=== PATIENT | male | born 1930 | race Caucasian/White ===

== ENCOUNTER 2021-03-28 22:18 | Inpatient (IN) | payer MEDICARE, MEDICAID ==
[~2021-03-28] VITALS: Ht 175.3 cm; Wt 51.7 kg
[2021-03-28] MEDS ORDERED: SODIUM CHLORIDE 0.9% 1000ML BAG (SEPSIS BOLUS) IV ONE (23:00)
[2021-03-28] MEDS ORDERED: PIPERACILLIN/TAZ 3.375G PREMIX 50 ML IV ONE (23:00)
[2021-03-28] MEDS ORDERED: VANCOMYCIN 1 G PREMIX 200 ML IV ONE (23:00)
[2021-03-28 23:18] LABS: CLARITY URINE CLOUDY (CLEAR); COLOR URINE DARK YELLOW (YELLOW); KETONES URINE NEGATIVE (NEGATIVE); LEUKOCYTE ESTERASE URINE 1+ (NEGATIVE); NITRITE URINE NEGATIVE (NEGATIVE); OCCULT BLOOD URINE NEGATIVE (NEGATIVE); PROTEIN URINE 1+ (NEGATIVE); SPECIFIC GRAVITY URINE 1.018 (1.005-1.030)
[2021-03-28 23:26] LABS: BASOPHILS % 0.5 % (0.0-2.0); EOSINOPHILS % 1.1 % (0.0-5.0); HEMATOCRIT. 28.7 % (42.0-52.0); HEMOGLOBIN. 9.1 g/dL (14.0-18.0); LYMPHOCYTES % 13.5 % (20.0-50.0); MEAN CORPUSCULAR HEMOGLOBIN 34.3 pg (28.0-32.0); MEAN CORPUSCULAR VOLUME 107.7 fL (80.0-94.0); MEAN PLATELET VOLUME 11.4 fl (7.4-10.4); MONOCYTES % 13.9 % (2.0-8.0); PLATELET 221 x1000/uL (130-400); RED BLOOD CELL COUNT 2.67 mill/uL (4.7-6.1)
[2021-03-28 23:32] LABS: CHLORIDE 109 mEq/L (98-107)
[2021-03-28 23:35] LABS: INR 1.2; PARTIAL THROMBOPLASTIN TIME 23.6 sec (23.4-31.0); PROTHROMBIN TIME 12.4 sec (9.6-11.0)
[2021-03-29] VITALS (59 sets, daily range): BP systolic 88–158; BP diastolic 50–87
[2021-03-29] MEDS ORDERED: PROPOFOL 10MG/ML 100ML 100 ML IV STA ×2 (00:22→07:30)
[2021-03-29] MEDS ORDERED: ETOMIDATE 2MG/ML 10ML VIAL IV ONE (00:30)
[2021-03-29] MEDS ORDERED: SUCCINYLCHOLINE CHLORIDE 200MG/10ML IV ONE (00:30)
[2021-03-29 00:38] LABS: BG BASE EXCESS 9.3 mmol/L (-2.0-2.0); BG CARBOXYHEMOGLOBIN 0.3 % (0.5-1.5); BG DEOXYHEMOGLOBIN 2.3 % (0.0-5.0); BG FRACTION INSPIRED OXYGEN 34; BG HCO3 ACT 39.8 mmol/L (22.0-26.0); BG METHEMOGLOBIN 0.2 % (0.0-1.5); BG OXYGEN SATURATION 97.7 % (92.0-98.5); BG OXYHEMOGLOBIN 97.2 % (94.0-97.0); BG PCO2 104.4 mmHg (35.0-45.0); BG PH 7.199 (7.350-7.450); BG PO2 137.6 mmHg (75.0-100.0); BG SAMPLE SITE RIGHT RADIAL; BG TOTAL HEMOGLOBIN 9.4 g/dL (12.0-18.0); BG VENT MODE NASAL CANNULA
[2021-03-29] MEDS ORDERED: ALBUTEROL (0.083%) 2.5MG/3ML NEB HHN ONE (01:45)
[2021-03-29] MEDS ORDERED: SODIUM BICARBONATE 8.4% 1 MEQ/ML 50ML SYR IV ONE (01:45)
[2021-03-29] MEDS ORDERED: SODIUM POLYSTYRENE SULFONATE 15 G/60 ML BOT GT ONE (01:45)
[2021-03-29] MEDS ORDERED: ALBUTEROL (0.5%) 2.5MG/0.5ML NEB HHN ONE (01:58)
[2021-03-29 02:43] LABS: BG BASE EXCESS 9.1 mmol/L (-2.0-2.0); BG CARBOXYHEMOGLOBIN 0.3 % (0.5-1.5); BG DEOXYHEMOGLOBIN 3.4 % (0.0-5.0); BG FRACTION INSPIRED OXYGEN 50; BG HCO3 ACT 33.8 mmol/L (22.0-26.0); BG OXYGEN SATURATION 96.6 % (92.0-98.5); BG OXYHEMOGLOBIN 96.3 % (94.0-97.0); BG PCO2 47.9 mmHg (35.0-45.0); BG PH 7.467 (7.350-7.450); BG PO2 88.3 mmHg (75.0-100.0); BG SAMPLE SITE RIGHT BRACHIAL; BG TOTAL HEMOGLOBIN 9.5 g/dL (12.0-18.0); BG VENT MODE VENT - AC
[2021-03-29] MEDS ORDERED: NOREPINEPHRINE 8MG/250ML PMX 250 ML IV ONE (02:45)
[2021-03-29] MEDS ORDERED: LORAZEPAM 2MG/ML CPJ IV ONE (03:30)
[2021-03-29] MEDS ORDERED: VANCOMYCIN 1 G PREMIX 200 ML IV SCH (05:15)
[2021-03-29] MEDS ORDERED: ASPIRIN 81MG TABLET PO ONE (05:30)
[2021-03-29] MEDS ORDERED: ONDANSETRON HCL 4MG/2ML INJ IV PRN (08:45)
[2021-03-29] MEDS ORDERED: PIPERACILLIN/TAZ 3.375G PREMIX 50 ML IV ONE (09:00)
[2021-03-29 09:05] LABS: BG BASE EXCESS 13.4 mmol/L (-2.0-2.0); BG CARBOXYHEMOGLOBIN 0.3 % (0.5-1.5); BG DEOXYHEMOGLOBIN 3.6 % (0.0-5.0); BG FRACTION INSPIRED OXYGEN 50; BG HCO3 ACT 35.9 mmol/L (22.0-26.0); BG METHEMOGLOBIN 0.4 % (0.0-1.5); BG OXYGEN SATURATION 96.4 % (92.0-98.5); BG OXYHEMOGLOBIN 95.7 % (94.0-97.0); BG PCO2 37.1 mmHg (35.0-45.0); BG PH 7.604 (7.350-7.450); BG PO2 74.9 mmHg (75.0-100.0); BG SAMPLE SITE RIGHT RADIAL; BG TOTAL HEMOGLOBIN 9.8 g/dL (12.0-18.0)
[2021-03-29] MEDS: DEXTROSE 5% WATER 1,000 ML IV SCH ×2 (09:20→21:03)
[2021-03-29] MEDS ORDERED: PROT40 MT (10:33)
[2021-03-29] MEDS ORDERED: MULT-1146 MT (10:33)
[2021-03-29] MEDS ORDERED: LISI-186 MT (10:33)
[2021-03-29] MEDS ORDERED: FERR15DR7 MT (10:33)
[2021-03-29] MEDS ORDERED: HJ10 IJ (10:33)
[2021-03-29] MEDS ORDERED: LACT10SO7 MT (10:33)
[2021-03-29] MEDS ORDERED: ATOR-2 PO (10:33)
[2021-03-29] MEDS ORDERED: ASPI-1497 MT (10:33)
[2021-03-29] MEDS ORDERED: ALBU4TAB6 MT (10:33)
[2021-03-29] MEDS ORDERED: LORA2ORA5 PO (10:33)
[2021-03-29] MEDS: PANTOPRAZOLE SODIUM 40 MG/VIAL IV SCH (10:43)
[2021-03-29] MEDS: IPRATROPIUM/ALBUTEROL 0.5-3(2.5)MG/3ML NEB HHN SCH ×2 (13:56→20:08)
[2021-03-29] MEDS: PIPERACILLIN/TAZOBACTAM 3.375 G in DEXTROSE 5% WATER 50 ML IV SCH ×2 (14:29→21:03)
[2021-03-29] MEDS: BACITRACIN 15GM TUBE TOP SCH (14:30)
[2021-03-29] MEDS: PROPOFOL 10MG/ML 100ML 100 ML IV PRN (14:32)
[2021-03-29] MEDS ORDERED: PIPERACILLIN/TAZOBACTAM 3.375 G in DEXTROSE 5% WATER 50 ML IV SCH (15:00)
[2021-03-29] MEDS: NOREPINEPHRINE 8 MG in DEXT 5% WATER 242 ML IV PRN (22:00)
[2021-03-30] VITALS (93 sets, daily range): BP systolic 94–153; BP diastolic 47–135
[2021-03-30] MEDS: IPRATROPIUM/ALBUTEROL 0.5-3(2.5)MG/3ML NEB HHN SCH ×4 (01:49→20:36)
[2021-03-30] MEDS: PIPERACILLIN/TAZOBACTAM 3.375 G in DEXTROSE 5% WATER 50 ML IV SCH ×4 (03:16→21:14)
[2021-03-30 05:49] LABS: BASOPHILS % 0.4 % (0.0-2.0); EOSINOPHILS % 1.1 % (0.0-5.0); HEMATOCRIT. 27.6 % (42.0-52.0); HEMOGLOBIN. 8.9 g/dL (14.0-18.0); LYMPHOCYTES % 11.8 % (20.0-50.0); MEAN CORPUSCULAR HEMOGLOBIN 33.6 pg (28.0-32.0); MEAN CORPUSCULAR VOLUME 104.4 fL (80.0-94.0); MEAN PLATELET VOLUME 11.4 fl (7.4-10.4); MONOCYTES % 6.4 % (2.0-8.0); NEUTROPHILS % 80.3 % (40.0-76.0); PLATELET 186 x1000/uL (130-400); RED BLOOD CELL COUNT 2.64 mill/uL (4.7-6.1); RED CELL DISTRIBUTION WIDTH 19.9 % (11.6-14.6)
[2021-03-30 05:50] LABS: CHLORIDE 109 mEq/L (98-107)
[2021-03-30] MEDS: PROPOFOL 10MG/ML 100ML 100 ML IV PRN (07:00)
[2021-03-30] MEDS ORDERED: POTASSIUM CHLORIDE 20MEQ TABLET SR PO NR (08:15)
[2021-03-30] MEDS: PANTOPRAZOLE SODIUM 40 MG/VIAL IV SCH (08:21)
[2021-03-30] MEDS: ASPIRIN 81MG TABLET PO SCH (08:21)
[2021-03-30] MEDS: BACITRACIN 15GM TUBE TOP SCH (08:22)
[2021-03-30 09:17] LABS: BG BASE EXCESS 9.3 mmol/L (-2.0-2.0); BG CARBOXYHEMOGLOBIN 0.3 % (0.5-1.5); BG DEOXYHEMOGLOBIN 2.4 % (0.0-5.0); BG FRACTION INSPIRED OXYGEN 30; BG HCO3 ACT 32.2 mmol/L (22.0-26.0); BG METHEMOGLOBIN 0.4 % (0.0-1.5); BG OXYGEN SATURATION 97.6 % (92.0-98.5); BG OXYHEMOGLOBIN 96.9 % (94.0-97.0); BG PCO2 37.1 mmHg (35.0-45.0); BG PH 7.556 (7.350-7.450); BG PO2 104.3 mmHg (75.0-100.0); BG SAMPLE SITE RIGHT RADIAL; BG TOTAL HEMOGLOBIN 9.7 g/dL (12.0-18.0); BG VENT MODE VENT - AC
[2021-03-30] MEDS ORDERED: POTASSIUM CHLORIDE INJ 40 MEQ in DEXT 5% WATER 250 ML IV NR (09:30)
[2021-03-30] MEDS ORDERED: FUROSEMIDE 20MG/2ML VIAL IVP NR (09:30)
[2021-03-30] MEDS: MIDODRINE HCL 5MG TABLET PO SCH ×3 (09:45→16:25)
[2021-03-30] MEDS: DEXTROSE 5% WATER 1,000 ML IV SCH ×2 (11:25→20:28)
[2021-03-30] MEDS: NOREPINEPHRINE 8 MG in DEXT 5% WATER 242 ML IV PRN (19:44)
[2021-03-31] VITALS (94 sets, daily range): BP systolic 74–160; BP diastolic 19–107
[2021-03-31] MEDS: IPRATROPIUM/ALBUTEROL 0.5-3(2.5)MG/3ML NEB HHN SCH ×4 (01:33→20:17)
[2021-03-31] MEDS ORDERED: NOREPINEPHRINE 8 MG in SODIUM CHLORIDE 0.9% 242 ML IV PRN (03:00)
[2021-03-31] MEDS: PIPERACILLIN/TAZOBACTAM 3.375 G in DEXTROSE 5% WATER 50 ML IV SCH ×4 (03:06→20:05)
[2021-03-31 05:56] LABS: CHLORIDE 101 mEq/L (98-107)
[2021-03-31 05:57] LABS: BASOPHILS % 0.3 % (0.0-2.0); EOSINOPHILS % 1.3 % (0.0-5.0); HEMATOCRIT. 29.1 % (42.0-52.0); HEMOGLOBIN. 9.5 g/dL (14.0-18.0); LYMPHOCYTES % 7.3 % (20.0-50.0); MEAN CORPUSCULAR HEMOGLOBIN 33.9 pg (28.0-32.0); MEAN CORPUSCULAR VOLUME 103.4 fL (80.0-94.0); MEAN PLATELET VOLUME 11.5 fl (7.4-10.4); MONOCYTES % 6.7 % (2.0-8.0); NEUTROPHILS % 84.4 % (40.0-76.0); PLATELET 198 x1000/uL (130-400); RED BLOOD CELL COUNT 2.81 mill/uL (4.7-6.1); RED CELL DISTRIBUTION WIDTH 20.2 % (11.6-14.6)
[2021-03-31] MEDS: DEXTROSE 5% WATER 1,000 ML IV SCH (06:18)
[2021-03-31 07:16] LABS: BG BASE EXCESS 7.7 mmol/L (-2.0-2.0); BG CARBOXYHEMOGLOBIN 0.1 % (0.5-1.5); BG DEOXYHEMOGLOBIN 2.9 % (0.0-5.0); BG HCO3 ACT 30.8 mmol/L (22.0-26.0); BG METHEMOGLOBIN 0.4 % (0.0-1.5); BG OXYGEN SATURATION 97.1 % (92.0-98.5); BG OXYHEMOGLOBIN 96.6 % (94.0-97.0); BG PCO2 37.5 mmHg (35.0-45.0); BG PH 7.533 (7.350-7.450); BG PO2 93.9 mmHg (75.0-100.0); BG SAMPLE SITE RIGHT RADIAL; BG TOTAL HEMOGLOBIN 10.1 g/dL (12.0-18.0); BG VENT MODE VENT - AC
[2021-03-31] MEDS: SODIUM CHLORIDE 0.45% 1,000 ML IV SCH (08:59)
[2021-03-31] MEDS: PANTOPRAZOLE SODIUM 40 MG/VIAL IV SCH (08:59)
[2021-03-31] MEDS: ASPIRIN 81MG TABLET PO SCH (09:00)
[2021-03-31] MEDS ORDERED: POTASSIUM CHLORIDE 20MEQ TABLET SR PO SCH (09:00)
[2021-03-31] MEDS: MIDODRINE HCL 5MG TABLET PO SCH ×3 (09:00→17:38)
[2021-03-31] MEDS: BACITRACIN 15GM TUBE TOP SCH (09:03)
[2021-03-31] MEDS ORDERED: SKIN ADHESIVE 0.7 GM EA TOP ONE (10:24)
[2021-03-31] MEDS ORDERED: LIDOCAINE HCL 1% 20ML VIAL (Pyxis) INJ INFIL NR (11:00)
[2021-03-31] MEDS ORDERED: FUROSEMIDE 40MG/4ML VIAL IVP NR (18:00)
[2021-03-31] MEDS: NOREPINEPHRINE 8 MG in DEXT 5% WATER 242 ML IV PRN (18:03)
[2021-03-31] MEDS: SPIRONOLACTONE 25MG TABLET PO SCH (18:45)
[2021-04-01] VITALS (87 sets, daily range): BP systolic 82–157; BP diastolic 17–108
[2021-04-01] MEDS: IPRATROPIUM/ALBUTEROL 0.5-3(2.5)MG/3ML NEB HHN SCH ×4 (02:20→20:30)
[2021-04-01] MEDS: PIPERACILLIN/TAZOBACTAM 3.375 G in DEXTROSE 5% WATER 50 ML IV SCH ×4 (02:57→20:06)
[2021-04-01] MEDS: SODIUM CHLORIDE 0.45% 1,000 ML IV SCH (02:58)
[2021-04-01 04:31] LABS: HEMATOCRIT. 24.6 % (42.0-52.0); HEMOGLOBIN. 8.2 g/dL (14.0-18.0); MEAN CORPUSCULAR HEMOGLOBIN 33.8 pg (28.0-32.0); MEAN CORPUSCULAR VOLUME 102.3 fL (80.0-94.0); MEAN PLATELET VOLUME 11.3 fl (7.4-10.4); PLATELET 149 x1000/uL (130-400); RED BLOOD CELL COUNT 2.41 mill/uL (4.7-6.1); RED CELL DISTRIBUTION WIDTH 20.4 % (11.6-14.6)
[2021-04-01 04:39] LABS: CHLORIDE 100 mEq/L (98-107)
[2021-04-01] MEDS: PANTOPRAZOLE SODIUM 40 MG/VIAL IV SCH (09:08)
[2021-04-01] MEDS: FUROSEMIDE 20MG/2ML VIAL IVP SCH ×3 (09:09→17:10)
[2021-04-01] MEDS: MIDODRINE HCL 5MG TABLET PO SCH ×3 (09:09→17:06)
[2021-04-01] MEDS: BACITRACIN 15GM TUBE TOP SCH (09:10)
[2021-04-01] MEDS: SPIRONOLACTONE 25MG TABLET PO SCH (09:10)
[2021-04-01] MEDS: MORPHINE SULFATE 2 MG/ML CPJ (NOT FOR IM USE) IV PRN ×2 (09:13→17:12)
[2021-04-01 09:39] LABS: BG BASE EXCESS 7.7 mmol/L (-2.0-2.0); BG CARBOXYHEMOGLOBIN 0.4 % (0.5-1.5); BG DEOXYHEMOGLOBIN 2.4 % (0.0-5.0); BG FRACTION INSPIRED OXYGEN 35; BG HCO3 ACT 30.7 mmol/L (22.0-26.0); BG METHEMOGLOBIN 0.4 % (0.0-1.5); BG OXYGEN SATURATION 97.6 % (92.0-98.5); BG OXYHEMOGLOBIN 96.8 % (94.0-97.0); BG PCO2 36.4 mmHg (35.0-45.0); BG PH 7.544 (7.350-7.450); BG PO2 100.5 mmHg (75.0-100.0); BG SAMPLE SITE RIGHT RADIAL; BG VENT MODE VENT - AC
[2021-04-01] MEDS ORDERED: POTASSIUM CHLORIDE 20MEQ TABLET SR PO NR (09:45)
[2021-04-01] MEDS ORDERED: POTASSIUM CHLORIDE 20MEQ/PACKET PO NR (10:30)
[2021-04-01] MEDS ORDERED: DOPAMINE 400MG/250ML PREMIX 250 ML IV PRN (10:30)
[2021-04-01 10:40] LABS: NUCLEATED RED BLOOD CELLS 1 /100 WBC; PLATELET ESTIMATE NORMAL
[2021-04-01] MEDS ORDERED: POTASSIUM CHLORIDE 20MEQ/PACKET GT NR (12:15)
[2021-04-01] MEDS: DOPAMINE 400MG/250ML PREMIX 250 ML IV PRN (21:38)
[2021-04-02] VITALS (91 sets, daily range): BP systolic 80–112; BP diastolic 38–74
[2021-04-02] MEDS: IPRATROPIUM/ALBUTEROL 0.5-3(2.5)MG/3ML NEB HHN SCH ×4 (01:54→20:27)
[2021-04-02] MEDS: PIPERACILLIN/TAZOBACTAM 3.375 G in DEXTROSE 5% WATER 50 ML IV SCH ×4 (02:05→22:00)
[2021-04-02 05:56] LABS: HEMATOCRIT. 23.2 % (42.0-52.0); HEMOGLOBIN. 7.9 g/dL (14.0-18.0); MEAN CORPUSCULAR HEMOGLOBIN 34.4 pg (28.0-32.0); MEAN CORPUSCULAR VOLUME 100.9 fL (80.0-94.0); MEAN PLATELET VOLUME 11.6 fl (7.4-10.4); PLATELET 123 x1000/uL (130-400); RED CELL DISTRIBUTION WIDTH 20.3 % (11.6-14.6)
[2021-04-02 06:01] LABS: CHLORIDE 101 mEq/L (98-107)
[2021-04-02 07:41] LABS: BG BASE EXCESS 5.8 mmol/L (-2.0-2.0); BG CARBOXYHEMOGLOBIN 0.4 % (0.5-1.5); BG DEOXYHEMOGLOBIN 1.6 % (0.0-5.0); BG FRACTION INSPIRED OXYGEN 35; BG HCO3 ACT 30.1 mmol/L (22.0-26.0); BG METHEMOGLOBIN 0.5 % (0.0-1.5); BG OXYGEN SATURATION 98.4 % (92.0-98.5); BG OXYHEMOGLOBIN 97.5 % (94.0-97.0); BG PCO2 42.6 mmHg (35.0-45.0); BG PH 7.467 (7.350-7.450); BG PO2 130.9 mmHg (75.0-100.0); BG SAMPLE SITE RIGHT RADIAL; BG TOTAL HEMOGLOBIN 8.3 g/dL (12.0-18.0); BG TOTAL RESPIRATORY RATE 18 b/min; BG VENT MODE VENT - SIMV
[2021-04-02] MEDS: PANTOPRAZOLE SODIUM 40 MG/VIAL IV SCH (08:19)
[2021-04-02] MEDS: MIDODRINE HCL 5MG TABLET PO SCH ×3 (08:19→17:06)
[2021-04-02] MEDS: SPIRONOLACTONE 25MG TABLET PO SCH ×2 (08:19→09:56)
[2021-04-02] MEDS: BACITRACIN 15GM TUBE TOP SCH (08:19)
[2021-04-02 12:07] LABS: BG BASE EXCESS 8.2 mmol/L (-2.0-2.0); BG CARBOXYHEMOGLOBIN 0.3 % (0.5-1.5); BG DEOXYHEMOGLOBIN 1.9 % (0.0-5.0); BG FRACTION INSPIRED OXYGEN 35; BG HCO3 ACT 32.9 mmol/L (22.0-26.0); BG METHEMOGLOBIN 0.5 % (0.0-1.5); BG OXYGEN SATURATION 98.1 % (92.0-98.5); BG OXYHEMOGLOBIN 97.3 % (94.0-97.0); BG PCO2 47.3 mmHg (35.0-45.0); BG PO2 120.3 mmHg (75.0-100.0); BG SAMPLE SITE RIGHT RADIAL; BG TOTAL HEMOGLOBIN 8.4 g/dL (12.0-18.0); BG VENT MODE VENT - CPAP
[2021-04-02 12:33] LABS: PLATELET ESTIMATE SLIGHTLY DECREASED
[2021-04-02] MEDS: DOPAMINE 400MG/250ML PREMIX 250 ML IV PRN (13:36)
[2021-04-02] MEDS: FUROSEMIDE 40MG/4ML VIAL IVP SCH (17:06)
[2021-04-03] VITALS (84 sets, daily range): BP systolic 70–117; BP diastolic 29–76
[2021-04-03] MEDS: IPRATROPIUM/ALBUTEROL 0.5-3(2.5)MG/3ML NEB HHN SCH ×4 (01:39→21:16)
[2021-04-03] MEDS: PIPERACILLIN/TAZOBACTAM 3.375 G in DEXTROSE 5% WATER 50 ML IV SCH ×2 (03:33→08:53)
[2021-04-03 04:00] LABS: HEMATOCRIT. 22.9 % (42.0-52.0); HEMOGLOBIN. 7.7 g/dL (14.0-18.0); MEAN CORPUSCULAR HEMOGLOBIN 34.4 pg (28.0-32.0); MEAN CORPUSCULAR VOLUME 101.8 fL (80.0-94.0); MEAN PLATELET VOLUME 11.1 fl (7.4-10.4); PLATELET 111 x1000/uL (130-400); RED BLOOD CELL COUNT 2.25 mill/uL (4.7-6.1); RED CELL DISTRIBUTION WIDTH 19.9 % (11.6-14.6)
[2021-04-03 04:03] LABS: CHLORIDE 102 mEq/L (98-107)
[2021-04-03] MEDS: FUROSEMIDE 40MG/4ML VIAL IVP SCH ×2 (07:15→17:12)
[2021-04-03 08:37] LABS: BG BASE EXCESS 10.8 mmol/L (-2.0-2.0); BG CARBOXYHEMOGLOBIN 0.3 % (0.5-1.5); BG DEOXYHEMOGLOBIN 1.6 % (0.0-5.0); BG FRACTION INSPIRED OXYGEN 36; BG METHEMOGLOBIN 0.5 % (0.0-1.5); BG OXYGEN SATURATION 98.4 % (92.0-98.5); BG OXYHEMOGLOBIN 97.6 % (94.0-97.0); BG PCO2 53.6 mmHg (35.0-45.0); BG PH 7.445 (7.350-7.450); BG PO2 123.5 mmHg (75.0-100.0); BG SAMPLE SITE LEFT RADIAL; BG TOTAL HEMOGLOBIN 7.6 g/dL (12.0-18.0); BG VENT MODE NASAL CANNULA
[2021-04-03] MEDS: PANTOPRAZOLE SODIUM 40 MG/VIAL IV SCH (08:53)
[2021-04-03] MEDS: BACITRACIN 15GM TUBE TOP SCH (08:53)
[2021-04-03] MEDS: MIDODRINE HCL 5MG TABLET PO SCH ×3 (08:54→17:12)
[2021-04-03] MEDS: SPIRONOLACTONE 25MG TABLET PO SCH (08:55)
[2021-04-03] MEDS ORDERED: POTASSIUM CHLORIDE 20MEQ TABLET SR PO NR (09:30)
[2021-04-03] MEDS ORDERED: POTASSIUM CHLORIDE 20MEQ/PACKET PEG NR (10:00)
[2021-04-03 10:10] LABS: PLATELET ESTIMATE DECREASED
[2021-04-03] MEDS ORDERED: SODIUM BICARBONATE 4% (2.4MEQ) 5ML VIAL IV ONE (12:29)
[2021-04-03 12:40] LABS: INR 1.1; PROTHROMBIN TIME 12.2 sec (9.6-11.0)
[2021-04-03] MEDS ORDERED: ALBUMIN HUMAN 25GM/100ML (25%) IV ONE (13:00)
[2021-04-03] MEDS: DOPAMINE 400MG/250ML PREMIX 250 ML IV PRN (18:08)
[2021-04-04] VITALS (99 sets, daily range): BP systolic 83–116; BP diastolic 38–66
[2021-04-04] MEDS: ACETAMINOPHEN 325MG TABLET PO PRN ×2 (00:50→10:21)
[2021-04-04] MEDS: IPRATROPIUM/ALBUTEROL 0.5-3(2.5)MG/3ML NEB HHN SCH ×4 (02:11→20:43)
[2021-04-04 05:42] LABS: BASOPHILS % 0.6 % (0.0-2.0); EOSINOPHILS % 2.5 % (0.0-5.0); HEMATOCRIT. 22.9 % (42.0-52.0); HEMOGLOBIN. 7.6 g/dL (14.0-18.0); LYMPHOCYTES % 7.8 % (20.0-50.0); MEAN CORPUSCULAR VOLUME 102.3 fL (80.0-94.0); MEAN PLATELET VOLUME 11.2 fl (7.4-10.4); MONOCYTES % 8.7 % (2.0-8.0); NEUTROPHILS % 80.4 % (40.0-76.0); PLATELET 125 x1000/uL (130-400); RED BLOOD CELL COUNT 2.24 mill/uL (4.7-6.1); RED CELL DISTRIBUTION WIDTH 19.4 % (11.6-14.6)
[2021-04-04 05:50] LABS: CHLORIDE 99 mEq/L (98-107)
[2021-04-04] MEDS: FUROSEMIDE 40MG/4ML VIAL IVP SCH ×2 (05:54→17:21)
[2021-04-04 07:15] LABS: BG BASE EXCESS 12.9 mmol/L (-2.0-2.0); BG CARBOXYHEMOGLOBIN 0.3 % (0.5-1.5); BG HCO3 ACT 37.4 mmol/L (22.0-26.0); BG METHEMOGLOBIN 0.2 % (0.0-1.5); BG OXYHEMOGLOBIN 93.5 % (94.0-97.0); BG PCO2 48.7 mmHg (35.0-45.0); BG PH 7.503 (7.350-7.450); BG PO2 65.5 mmHg (75.0-100.0); BG SAMPLE SITE RIGHT RADIAL; BG TOTAL HEMOGLOBIN 8.7 g/dL (12.0-18.0); BG VENT MODE NASAL CANNULA
[2021-04-04] MEDS: PANTOPRAZOLE SODIUM 40 MG/VIAL IV SCH (09:31)
[2021-04-04] MEDS: BACITRACIN 15GM TUBE TOP SCH (09:31)
[2021-04-04] MEDS: SPIRONOLACTONE 25MG TABLET PO SCH (09:32)
[2021-04-04] MEDS: MIDODRINE HCL 5MG TABLET PO SCH ×3 (09:32→17:21)
[2021-04-04] MEDS: DOCUSATE SODIUM SUGAR FREE 100MG/10ML UDC NG SCH (10:18)
[2021-04-05] VITALS (73 sets, daily range): BP systolic 82–103; BP diastolic 38–62
[2021-04-05] MEDS: IPRATROPIUM/ALBUTEROL 0.5-3(2.5)MG/3ML NEB HHN SCH ×4 (01:22→20:18)
[2021-04-05] MEDS: FUROSEMIDE 40MG/4ML VIAL IVP SCH ×2 (05:33→17:09)
[2021-04-05 05:46] LABS: CHLORIDE 99 mEq/L (98-107)
[2021-04-05 05:49] LABS: BASOPHILS % 1.6 % (0.0-2.0); EOSINOPHILS % 2.6 % (0.0-5.0); HEMATOCRIT. 23.8 % (42.0-52.0); LYMPHOCYTES % 10.7 % (20.0-50.0); MEAN CORPUSCULAR HEMOGLOBIN 34.2 pg (28.0-32.0); MEAN CORPUSCULAR VOLUME 101.5 fL (80.0-94.0); MEAN PLATELET VOLUME 10.7 fl (7.4-10.4); MONOCYTES % 9.7 % (2.0-8.0); NEUTROPHILS % 75.4 % (40.0-76.0); PLATELET 140 x1000/uL (130-400); RED BLOOD CELL COUNT 2.35 mill/uL (4.7-6.1); RED CELL DISTRIBUTION WIDTH 20.3 % (11.6-14.6)
[2021-04-05 07:27] LABS: BG BASE EXCESS 13.7 mmol/L (-2.0-2.0); BG CARBOXYHEMOGLOBIN 0.3 % (0.5-1.5); BG DEOXYHEMOGLOBIN 2.5 % (0.0-5.0); BG HCO3 ACT 38.1 mmol/L (22.0-26.0); BG METHEMOGLOBIN 0.5 % (0.0-1.5); BG OXYGEN SATURATION 97.5 % (92.0-98.5); BG OXYHEMOGLOBIN 96.7 % (94.0-97.0); BG PH 7.517 (7.350-7.450); BG PO2 93.4 mmHg (75.0-100.0); BG SAMPLE SITE RIGHT RADIAL; BG TOTAL HEMOGLOBIN 8.2 g/dL (12.0-18.0); BG VENT MODE NASAL CANNULA
[2021-04-05] MEDS: PANTOPRAZOLE SODIUM 40 MG/VIAL IV SCH (08:10)
[2021-04-05] MEDS: DOCUSATE SODIUM SUGAR FREE 100MG/10ML UDC NG SCH (08:10)
[2021-04-05] MEDS: BACITRACIN 15GM TUBE TOP SCH (08:11)
[2021-04-05] MEDS: MIDODRINE HCL 5MG TABLET PO SCH ×3 (08:11→17:09)
[2021-04-05] MEDS: SPIRONOLACTONE 25MG TABLET PO SCH (10:12)
[2021-04-05] MEDS: ACETAMINOPHEN 325MG TABLET PO PRN (13:23)
[2021-04-06] VITALS (19 sets, daily range): BP systolic 90–104; BP diastolic 53–63
[2021-04-06] MEDS: IPRATROPIUM/ALBUTEROL 0.5-3(2.5)MG/3ML NEB HHN SCH ×4 (01:42→20:24)
[2021-04-06] MEDS: FUROSEMIDE 40MG/4ML VIAL IVP SCH ×2 (06:23→18:40)
[2021-04-06 07:15] LABS: BASOPHILS % 0.6 % (0.0-2.0); EOSINOPHILS % 2.6 % (0.0-5.0); HEMATOCRIT. 22.8 % (42.0-52.0); HEMOGLOBIN. 7.5 g/dL (14.0-18.0); LYMPHOCYTES % 16.7 % (20.0-50.0); MEAN CORPUSCULAR HEMOGLOBIN 34.2 pg (28.0-32.0); MEAN CORPUSCULAR VOLUME 103.8 fL (80.0-94.0); MEAN PLATELET VOLUME 10.8 fl (7.4-10.4); MONOCYTES % 10.7 % (2.0-8.0); NEUTROPHILS % 69.4 % (40.0-76.0); PLATELET 168 x1000/uL (130-400); RED BLOOD CELL COUNT 2.19 mill/uL (4.7-6.1); RED CELL DISTRIBUTION WIDTH 20.8 % (11.6-14.6)
[2021-04-06 07:43] LABS: CHLORIDE 99 mEq/L (98-107)
[2021-04-06] MEDS: MIDODRINE HCL 5MG TABLET PO SCH ×3 (09:00→18:41)
[2021-04-06] MEDS: PANTOPRAZOLE SODIUM 40 MG/VIAL IV SCH (09:58)
[2021-04-06] MEDS: BACITRACIN 15GM TUBE TOP SCH (09:59)
[2021-04-06] MEDS: SPIRONOLACTONE 25MG TABLET PO SCH (09:59)
[2021-04-06] MEDS: DOCUSATE SODIUM SUGAR FREE 100MG/10ML UDC NG SCH (10:40)
[2021-04-07] MEDS: IPRATROPIUM/ALBUTEROL 0.5-3(2.5)MG/3ML NEB HHN SCH ×3 (01:57→15:03)
[2021-04-07 04:00] VITALS: BP 99/54
[2021-04-07] MEDS: FUROSEMIDE 40MG/4ML VIAL IVP SCH (06:05)
[2021-04-07 06:07] LABS: CHLORIDE 102 mEq/L (98-107)
[2021-04-07 06:09] LABS: BASOPHILS % 0.9 % (0.0-2.0); HEMOGLOBIN. 7.8 g/dL (14.0-18.0); LYMPHOCYTES % 15.5 % (20.0-50.0); MEAN CORPUSCULAR HEMOGLOBIN 34.1 pg (28.0-32.0); MEAN CORPUSCULAR VOLUME 104.7 fL (80.0-94.0); MONOCYTES % 10.4 % (2.0-8.0); NEUTROPHILS % 71.2 % (40.0-76.0); PLATELET 187 x1000/uL (130-400); RED BLOOD CELL COUNT 2.29 mill/uL (4.7-6.1); RED CELL DISTRIBUTION WIDTH 20.5 % (11.6-14.6)
[2021-04-07 08:00] VITALS: BP 97/59
[2021-04-07] MEDS: MIDODRINE HCL 5MG TABLET PO SCH ×3 (09:40→17:30)
[2021-04-07] MEDS: PANTOPRAZOLE SODIUM 40 MG/VIAL IV SCH (09:40)
[2021-04-07] MEDS: DOCUSATE SODIUM SUGAR FREE 100MG/10ML UDC NG SCH (09:40)
[2021-04-07] MEDS: BACITRACIN 15GM TUBE TOP SCH (09:40)
[2021-04-07 12:00] VITALS: BP 101/61
[2021-04-07 16:00] VITALS: BP 108/61
[2021-04-07] MEDS: ACETAMINOPHEN 325MG TABLET PO PRN (17:30)
[2021-04-07 17:42] VITALS: BP 96/67
== END 2021-04-07 17:55 | DRG 853 ==
LOC: ER 22:18 → EDBEDREQTM 03-29 01:53 → EDBEDREQ 03-29 01:53 → EDBEDREQDT 03-29 01:53 → EDBEDREQSVC 03-29 01:53 → EDBEDREQ 03-29 02:40 → EDBEDREQTM 03-29 02:40 → EDBEDREQ 03-29 02:42 → ENRESERV 03-29 07:18 → MICUSO 03-29 09:17 → 5EST 04-05 21:10
PROVIDERS: ADMIT Internal Medicine; ATTEND Internal Medicine
PROC: 5A1955Z Respiratory Ventilation, Greater than 96 Consecutive Hours (ICD-10-PCS; principal; 2021-03-29)
PROC: 0BH17EZ Insertion of Endotracheal Airway into Trachea, Via Natural or Artificial Opening (ICD-10-PCS; 2021-03-29)
PROC: 0JQQ0ZZ Repair Right Foot Subcutaneous Tissue and Fascia, Open Approach (ICD-10-PCS; 2021-03-31)
PROC: 02HV33Z Insertion of Infusion Device into Superior Vena Cava, Percutaneous Approach (ICD-10-PCS; 2021-04-01)
PROC: B548ZZA Ultrasonography of Superior Vena Cava, Guidance (ICD-10-PCS; 2021-04-01)
PROC: 0W9B3ZZ Drainage of Left Pleural Cavity, Percutaneous Approach (ICD-10-PCS; 2021-04-03)
DX: A41.9 Sepsis, unspecified organism (principal); E43 Unspecified severe protein-calorie malnutrition; G93.41 Metabolic encephalopathy; I21.4 Non-ST elevation (NSTEMI) myocardial infarction; J18.9 Pneumonia, unspecified organism; J96.02 Acute respiratory failure with hypercapnia; R65.21 Severe sepsis with septic shock; R57.0 Cardiogenic shock; J96.01 Acute respiratory failure with hypoxia; I50.23 Acute on chronic systolic (congestive) heart failure; I42.0 Dilated cardiomyopathy; I31.3 Pericardial effusion (noninflammatory); Z68.1 Body mass index [BMI] 19.9 or less, adult; J90 Pleural effusion, not elsewhere classified; E87.1 Hypo-osmolality and hyponatremia; D64.9 Anemia, unspecified; E87.5 Hyperkalemia; E87.8 Other disorders of electrolyte and fluid balance, not elsewhere classified; F03.90 Unspecified dementia, unspecified severity, without behavioral disturbance, psychotic disturbance, mood disturbance, and anxiety; F32.9 Major depressive disorder, single episode, unspecified; I11.0 Hypertensive heart disease with heart failure; R13.10 Dysphagia, unspecified; E87.6 Hypokalemia; Z20.822 Contact with and (suspected) exposure to COVID-19; R74.01 Elevation of levels of liver transaminase levels; L89.156 Pressure-induced deep tissue damage of sacral region; S91.114A Laceration without foreign body of right lesser toe(s) without damage to nail, initial encounter; X58.XXXA Exposure to other specified factors, initial encounter; I73.9 Peripheral vascular disease, unspecified; Z87.01 Personal history of pneumonia (recurrent); Z93.1 Gastrostomy status; Z95.0 Presence of cardiac pacemaker; Y93.89 Activity, other specified; Y92.89 Other specified places as the place of occurrence of the external cause; Y99.8 Other external cause status
CPT/HCPCS: 32555; 36415; 36600; 71045; 71250; 73030; 73620; 76604; 76937; 80048; 80053; 81003; 82040; 82270; 82375; 82728; 82805; 82962; 83540; 83550; 83605; 83615; 83735; 83880; 84134; 84145; 84155; 84478; 84484; 85025; 87070; 87426; 92610; 93005; 93306; 93923; 93970; 94002; 94003; 94640; 97162; 97165; 99291; A6261; C1725; C9113; J1265; J1940; J2270; J2543; J2704; J3370; J3480; J3490; J7030; J7050; J7060; J7070; U0003; U0005; A4315